=== PATIENT | female | born 1960 ===

== ENCOUNTER 2018-03-27 10:11 | Emergency (ER) | payer OTHER ==
[2018-03-27 10:17] VITALS: RESP 18
[2018-03-27] MEDS ORDERED: Naproxen 550 mg Tab PO STA (10:19)
[2018-03-27] MEDS ORDERED: Lidocaine 1% Inj (20ml) INFIL STA (10:35)
[2018-03-27] MEDS ORDERED: Lidocaine Hydrochloride 5 ML INJ ONE (10:42)
[2018-03-27] MEDS ORDERED: Naproxen 550 mg Tab PO ONE (10:43)
--- NOTE | 2018-03-27 10:52 | C.PDOC ---
History Of Present Illness 57 year female presents to the ED complaining of right 5th digit pain status post falling on sidewalk prior to arrival. Denies any weakness, numbness, LOC, head injury, or any other injuries. Time Seen by Provider: 03/27/18 10:18 Chief Complaint (Nursing): Finger,Hand,&Wrist History Per: Patient History/Exam Limitations: no limitations Onset/Duration Of Symptoms: Mins Current Symptoms Are (Timing): Still Present Quality: "Pain" Past Medical History Reviewed: Historical Data, Nursing Documentation, Vital Signs Vital Signs: Last Vital Signs Temp 97.8 F 03/27/18 10:14 Pulse 95 H 03/27/18 10:14 Resp 18 03/27/18 10:14 BP 170/95 H 03/27/18 10:14 Pulse Ox 97 03/27/18 10:14 - Medical History PMH: HTN Denies: Chronic Kidney Disease Other Surgeries: Hx of surgeries Family History: States: No Known Family Hx - Social History Hx Alcohol Use: Yes Hx Substance Use: No - Immunization History Hx Tetanus Toxoid Vaccination: No Hx Influenza Vaccination: Yes Hx Pneumococcal Vaccination: No Review Of Systems Except As Marked, All Systems Reviewed And Found Negative. Musculoskeletal: Positive for: Hand Pain (right 5th digit pain ) Neurological: Negative for: Weakness, Numbness Physical Exam - Physical Exam Appears: Non-toxic, No Acute Distress Skin: Warm, Dry, No Rash Head: Normacephalic Eye(s): bilateral: Normal Inspection Nose: Normal Oral Mucosa: Moist Neck: Supple Chest: Symmetrical Cardiovascular: Rhythm Regular Respiratory: Normal Breath Sounds, No Rales, No Rhonchi, No Wheezing Extremity: Tenderness (right 5th digit ), Capillary Refill (less than 2 sec to right hand ), Deformity (right 5th digit ), Swelling (right 5th digit ) Neurological/Psych: Oriented x3, Normal Speech, Normal Motor, Normal Sensation Gait: Steady ED Course And Treatment O2 Sat by Pulse Oximetry: 97 (RA) Pulse Ox Interpretation: Normal - Other Rad XR right hand X-Ray: Viewed By Me, Read By Radiologist Interpretation: Accession No. : [id number]. Patient Name / ID : SANDY GIL / [id number]. Exam Date : 03/27/2018 11:40:43 ( Approved ). Study Comment : Sex / Age : F / 57Y. Creator : Trisha Suero MD. Dictator : Trisha Suero MD. Surgical Dressing Maker : Act Tutor : Trisha Suero MD. Approver2 : Report Date : 03/27/2018 12:14:26. My Comment : . PROCEDURE: Right hand radiographs. HISTORY: post splint. COMPARISON: Right hand radiographs performed earlier the same day. FINDINGS: BONES: Images are obtained through a splint which obscures osseous detail. No acute displaced fracture. JOINTS: No dislocation. SOFT TISSUES: Soft tissue swelling. No evidence of radiopaque foreign body. OTHER FINDINGS: None. IMPRESSION: Soft tissue swelling. Splint overlies the 5th digit. No acute dis placed fracture identified. Medical Decision Making Medical Decision Making: Plan - Naproxen 550mg PO - XR right hand - Lidocaine 1% 10ml IV suspect swan neck injury. xr neg for fx, ?fracture. pt splinted, xr repeated. advise outpt fu. given hand f/u. Disposition - Disposition Referrals: Violeta Shah MD [Staff Provider] - Disposition: HOME/ ROUTINE Disposition Time: 12:00 Condition: STABLE Prescriptions: RX: Naproxen 500 mg PO BID PRN #14 tab PRN Reason: Pain, Mild (1-3) Instructions: Common Finger Injuries (DC), Jammed Finger Forms: [employer] ([place]) - Clinical Impression Clinical Impression: [place]-neck deformity of finger, Finger sprain - Scribe Statement The provider has reviewed the documentation as recorded by the Daysiibsheron Hou All medical record entries made by the Scribe were at my direction and personally dictated by me. I have reviewed the chart and agree that the record accurately reflects my personal performance of the history, physical exam, medical decision making, and the department course for this patient. I have also personally directed, reviewed, and agree with the discharge instructions and disposition.
--- NOTE | 2018-03-27 12:17 | RAD ---
PROCEDURE: Right hand radiographs. HISTORY: post splint COMPARISON: Right hand radiographs performed earlier the same day. FINDINGS: BONES: Images are obtained through a splint which obscures osseous detail. No acute displaced fracture. JOINTS: No dislocation. SOFT TISSUES: Soft tissue swelling. No evidence of radiopaque foreign body. OTHER FINDINGS: None. IMPRESSION: Soft tissue swelling. Splint overlies the 5th digit. No acute displaced fracture identified.
--- NOTE | 2018-03-27 12:24 | RAD ---
PROCEDURE: Right Hand Radiographs. HISTORY: fall COMPARISON: No prior study available. FINDINGS: BONES: No acute displaced fracture. JOINTS: Evidence of subluxation 5th MIP. No dislocation. SOFT TISSUES: Mild soft tissue swelling. No evidence of radiopaque foreign body. OTHER FINDINGS: None. IMPRESSION: Evidence of subluxation, 5th MIP. Soft tissue swelling.
[2018-03-27 12:39] VITALS: BP 163/102; PULSE 84; TEMP 98.5
[2018-03-27 14:33] VITALS: O2SAT 97
== END 2018-03-27 12:47 | disposition home or self-care (01) ==
LOC: C.ER 10:11
DX: M20.031 Swan-neck deformity of right finger(s) (principal); S63.616A Unspecified sprain of right little finger, initial encounter; W19.XXXA Unspecified fall, initial encounter; Y92.480 Sidewalk as the place of occurrence of the external cause; I10 Essential (primary) hypertension